=== PATIENT | male | born 1990 | race African-American/Black ===

== ENCOUNTER 2020-03-06 19:38 | Emergency (ER) | payer MEDICAID ==
[~2020-03-06] VITALS: Ht 185.4 cm; Wt 78.0 kg
[2020-03-06] MEDS ORDERED: SODIUM CHLORIDE 0.9% 1,000 ML IV ONE (21:56)
[2020-03-06] MEDS ORDERED: LORAZEPAM 2MG/ML CPJ IV STA (21:56)
[2020-03-06 23:06] LABS: HEMATOCRIT. 41.1 % (42.0-52.0); MEAN CORPUSCULAR HEMOGLOBIN 31.1 pg (28.0-32.0); MEAN CORPUSCULAR VOLUME 90.9 fL (80.0-94.0); MEAN PLATELET VOLUME 8.3 fl (7.4-10.4); PLATELET 158 x1000/uL (130-400); RED BLOOD CELL COUNT 4.52 mill/uL (4.7-6.1); RED CELL DISTRIBUTION WIDTH 15.3 % (11.6-14.6)
[2020-03-06 23:11] LABS: CHLORIDE 109 mEq/L (98-107)
[2020-03-06 23:14] LABS: ETHANOL BLOOD < 10 mg/dL
[2020-03-06 23:28] LABS: PLATELET ESTIMATE NORMAL
[2020-03-07 00:05] LABS: CLARITY URINE CLEAR (CLEAR); COLOR URINE YELLOW (YELLOW); KETONES URINE NEGATIVE (NEGATIVE); LEUKOCYTE ESTERASE URINE NEGATIVE (NEGATIVE); NITRITE URINE NEGATIVE (NEGATIVE); OCCULT BLOOD URINE TRACE (NEGATIVE); PROTEIN URINE NEGATIVE (NEGATIVE); SPECIFIC GRAVITY URINE 1.013 (1.005-1.030)
[2020-03-07 00:22] LABS: *BARBITURATES SCREEN URINE NEGATIVE (NEGATIVE); *BENZODIAZEPINES SCREEN URINE NEGATIVE (NEGATIVE)
[2020-03-07 00:23] LABS: *AMPHETAMINES SCREEN URINE PRESUMTIVE POSITIVE (NEGATIVE); *COCAINE SCREEN URINE NEGATIVE (NEGATIVE); CANNABINOID URINE SCREEN PRESUMTIVE POSITIVE (NEGATIVE); METHADONE URINE SCREEN NEGATIVE (NEGATIVE); OPIATES URINE SCREEN NEGATIVE (NEGATIVE); PHENCYCLIDINE URINE SCREEN NEGATIVE (NEGATIVE)
[2020-03-07] MEDS ORDERED: LORAZEPAM 2MG/ML CPJ IM ONE (01:15)
[2020-03-07] MEDS ORDERED: DIPHENHYDRAMINE 50MG/ML VIAL IM ONE (01:15)
[2020-03-07] MEDS ORDERED: HALOPERIDOL LACTATE 5MG/ML VIAL IM ONE (01:15)
[2020-03-07 09:53] VITALS: BP 103/82
== END 2020-03-07 12:02 | disposition left against medical advice (07) ==
LOC: ER 19:38 → EDBD 19:38 → ER 03-07 12:02
DX: F29 Unspecified psychosis not due to a substance or known physiological condition (principal)
CPT/HCPCS: 36415; 80053; 80305; 80307; 80320; 80329; 81003; 85025; 93005; 96361; 96372; 96374; 99285; J1200; J1630; J2060; J7030; G0480

== ENCOUNTER 2020-11-16 12:38 | Emergency (ER) | payer MEDICAID, OTHER ==
[~2020-11-16] VITALS: Ht 175.3 cm; Wt 60.0 kg
[2020-11-16 13:34] LABS: BASOPHILS % 0.5 % (0.0-2.0); HEMATOCRIT. 41.8 % (42.0-52.0); HEMOGLOBIN. 14.3 g/dL (14.0-18.0); LYMPHOCYTES % 27.4 % (20.0-50.0); MEAN CORPUSCULAR HEMOGLOBIN 30.2 pg (28.0-32.0); MEAN CORPUSCULAR VOLUME 88.2 fL (80.0-94.0); MEAN PLATELET VOLUME 7.9 fl (7.4-10.4); MONOCYTES % 13.9 % (2.0-8.0); NEUTROPHILS % 57.2 % (40.0-76.0); PLATELET 213 x1000/uL (130-400); RED BLOOD CELL COUNT 4.74 mill/uL (4.7-6.1); RED CELL DISTRIBUTION WIDTH 14.3 % (11.6-14.6)
[2020-11-16 13:39] LABS: CHLORIDE 109 mEq/L (98-107)
[2020-11-16 13:44] LABS: ETHANOL BLOOD < 10 mg/dL
[2020-11-16 13:45] LABS: *AMPHETAMINES SCREEN URINE PRESUMTIVE POSITIVE (NEGATIVE); *COCAINE SCREEN URINE NEGATIVE (NEGATIVE); CANNABINOID URINE SCREEN PRESUMTIVE POSITIVE (NEGATIVE)
[2020-11-16 13:47] LABS: *BENZODIAZEPINES SCREEN URINE NEGATIVE (NEGATIVE); METHADONE URINE SCREEN NEGATIVE (NEGATIVE)
[2020-11-16 13:48] LABS: *BARBITURATES SCREEN URINE NEGATIVE (NEGATIVE); PHENCYCLIDINE URINE SCREEN NEGATIVE (NEGATIVE)
[2020-11-16 13:49] LABS: OPIATES URINE SCREEN NEGATIVE (NEGATIVE)
[2020-11-16] MEDS ORDERED: LORAZEPAM 2MG/ML CPJ IM ONE (14:15)
[2020-11-16] MEDS ORDERED: DIPHENHYDRAMINE 50MG/ML VIAL IM ONE (14:30)
[2020-11-16] MEDS ORDERED: ZIPRASIDONE MESYLATE 20MG/VIAL IM ONE (14:30)
[2020-11-17 00:45] VITALS: BP 135/86
== END 2020-11-17 02:00 | disposition left against medical advice (07) ==
LOC: ER 12:38
DX: F29 Unspecified psychosis not due to a substance or known physiological condition (principal); F19.10 Other psychoactive substance abuse, uncomplicated; F41.9 Anxiety disorder, unspecified
CPT/HCPCS: 36415; 80053; 80305; 80307; 80320; 80329; 85025; 96372; 99285; J1200; J2060; J3486; G0480